=== PATIENT | female | born 1970 | race Hispanic/Latino ===

== ENCOUNTER 2017-04-14 08:44 | Outpatient (CLI) | payer OTHER ==
[2017-04-14 09:35] LABS: #Eosinphils 0.1 thou/uL (0.0-0.7); #Lymphocytes 2.1 thou/uL (1.20-3.40); #Monocytes 0.4 thou/uL (0.11-0.59); #Neutrophils 3.3 thou/uL (1.40-6.50); %Basophils 0.8 % (0.0-1.0); %Lymphocytes 34.8 % (21.0-51.0); %Monocytes 5.9 % (0.0-10.0); %Neutrophils 56.5 % (42.0-75.0); Hemoglobin 13.6 g/dL (12.0-16.0); Mean Corpuscular HGB CONC 33.1 g/dL (32.0-36.0); Mean Corpuscular Hemoglobin 30.1 pg (27.0-31.0); Mean Corpuscular Volume 90.9 fl (81.0-99.0); Mean Platelet Volume 9.6 fL (7.4-10.4); Platelet Count 322 thou/uL (130-400); RBC Distribution Width 15.1 % (11.5-14.5); Red Blood Cell (RBC) Count 4.53 mill/uL (4.20-5.40); White Blood Cell (WBC) Count 5.9 thou/uL (4.8-10.8)
[2017-04-14 09:48] LABS: ALT (SGPT) 34 U/L (8-55); AST (SGOT) 17 U/L (5-34); Albumin 3.8 g/dL (3.5-5.0); Alkaline Phosphatase 76 U/L (40-150); Anion Gap 11 mmol/L (10-20); BUN (Urea Nitrogen) 14 mg/dL (7.0-18.7); Bilirubin, Total Less than 0.3 mg/dL (0.2-1.2); Calc. Creatinine Clearance 0 mL/min (70-130); Calcium 8.5 mg/dL (7.8-10.44); Carbon Dioxide 23 mmol/L (22-29); Chloride 108 mmol/L (98-107); Estimated GFR-MDRD Greater than 90; Globulin 3.2 g/dL (2.4-3.5); Glucose 114 mg/dL (70-105); Potassium 3.4 mmol/L (3.5-5.1); Sodium 139 mmol/L (136-145)
[2017-04-14 18:30] LABS: HBSAB Concentration 0.41 mIU/mL; Hep B Surf AB Non-Reactive (NonReactive)
== END 2017-04-14 08:45 | disposition home or self-care (01) ==
LOC: MADLAB 08:44
DX: Z00.00 Encounter for general adult medical examination without abnormal findings (principal)
CPT/HCPCS: 36415; 80050; 86706

== ENCOUNTER 2021-01-16 15:53 | Emergency (ER) | payer MEDICAID, OTHER, SELFPAY ==
[2021-01-16 16:52] LABS: Bilirubin Negative (Negative); Blood, Urine Trace (Negative); Glucose, Urine (Dipstick) Negative (Negative); Ketone, Urine Trace mg/dL (Negative); Leukocyte Trace (Negative); Nitrite Negative (Negative); Protein, Urine (Dipstick) 100 mg/dL (Neg-Trace); Urobilinogen 0.2 mg/dL (Less than 2)
[2021-01-16 16:55] LABS: Clarity Hazy (Clear); Specific Gravity, Urine 1.027 (1.002-1.036)
[2021-01-16 16:56] LABS: Bacteria/HPF 2+ HPF (None Seen); RBC/HPF 0-3 HPF (0-3)
[2021-01-16] MEDS ORDERED: Prochlorperazine 10 MG/2 ML VIAL ONE (17:01)
== END 2021-01-16 17:25 | disposition home or self-care (01) ==
LOC: MADERS 15:53
DX: K52.9 Noninfective gastroenteritis and colitis, unspecified (principal); I10 Essential (primary) hypertension; Z79.899 Other long term (current) drug therapy
CPT/HCPCS: 81003; 81015; 96372; 99284; J0780